=== PATIENT | male | born 1980 | race Caucasian/White ===

== ENCOUNTER 2019-10-10 21:23 | Emergency (ER) | payer OTHER ==
[2019-10-10 21:35] VITALS: BP 133/91; PULSE 103
--- NOTE | 2019-10-10 22:10 | EDM.PDOC ---
ED HPI GENERAL MEDICAL PROBLEM - General Chief Complaint: Lower Extremity Injury/Pain Stated Complaint: POSSIBLE BROKEN FOOT Time Seen by Provider: 10/10/19 21:47 Source of Information: Reports: Patient, RN Notes Reviewed History Limitations: Reports: No Limitations - History of Present Illness INITIAL COMMENTS - FREE TEXT/NARRATIVE: Patient is a 39-year-old male who presents to the ED for the evaluation of a left ankle injury. Patient states he was playing basketball with a couple other guys, and he was going for the basket, did a jump stop and ended up landing on another player's foot and rolled his left ankle. He states that he felt a pop and it hurt directly after this. There is quite a bit of swelling noted to the lateral aspect of his ankle. There is some redness, swelling and warmth as well. He also is complaining of pain to his medial aspect of his ankle. Triage nurse did apply ice to the area and elevated it, he states that this did seem to help quite a bit. He is not having any numbness or tingling, and he can move his foot and wiggle his toes without much issue. He states that he can bear weight however it is very painful to do so. 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 Treatments SHAREHOLDER: Reports: NSAIDS Left Ankle Pain Score (Numeric/FACES): 6 - Related Data Allergies Allergy/AdvReac Type Severity Reaction Status Date / Time cashew nut Allergy Anaphylactic Verified 10/10/19 21:36 Shock pistachio nut Allergy Anaphylactic Verified 10/10/19 21:36 Shock venom-honey bee Allergy Anaphylactic Verified 10/10/19 21:36 [bee venom (honey bee)] Shock Home Meds: Home Meds Amphetamine [Adzenys Xr-Odt 12.5 mg Tablet] 25 mg PO ASDIRECTED 10/10/19 [ History] Past Medical History Psychiatric History: Reports: ADD Social & Family History - Tobacco Use Smoking Status *Q: Never Smoker - Caffeine Use Caffeine Use: Reports: Coffee, Energy Drinks - Recreational Drug Use Recreational Drug Use: No Review of Systems - Review of Systems Review Of Systems: Comprehensive ROS is negative, except as noted in HPI. Musculoskeletal: Reports: Joint Pain (L ankle), Joint Swelling (L lateral ankle) Skin: Reports: Erythema (L lateral ankle). Denies: Bruising Neurological: Denies: Numbness, Tingling ED EXAM, GENERAL - Physical Exam Exam: See Below Exam Limited By: No Limitations General Appearance: Alert, WD/WN, No Apparent Distress Respiratory/Chest: No Respiratory Distress, Lungs Clear, Normal Breath Sounds, No Accessory Muscle Use, Chest Non-Tender Cardiovascular: Normal Peripheral Pulses, Regular Rate, Rhythm, No Murmur Extremities: Normal Capillary Refill, Joint Swelling (L lateral ankle), Limited Range of Motion (of L ankle d/t pain.) Neurological: Alert, Oriented, Normal Cognition, No Motor/Sensory Deficits Psychiatric: Normal Affect, Normal Mood Skin Exam: Warm, Dry, Intact, Normal Color, No Rash. No: Ecchymosis Course - Vital Signs Last Recorded V/S: Last Vital Signs Temp 98.4 F 10/10/19 21:34 Pulse 103 H 10/10/19 21:34 Resp 18 10/10/19 21:34 BP 133/91 H 10/10/19 21:34 Pulse Ox 98 10/10/19 21:34 - Orders/Labs/Meds Orders: Active Orders 24 hr Category Date Time Status Ankle Min 3V Lt [CR] Stat Exams 10/10/19 21:50 Ordered Foot Comp Min 3V Lt [CR] Stat Exams 10/10/19 21:50 Ordered - Re-Assessments/Exams Free Text/Narrative Re-Assessment/Exam: 10/10/19 22:12 Patient presents to the ED for the evaluation of his left ankle injury. I did order ankle x-rays and left foot x-rays for evaluation. 10/10/19 22:28 X-rays of the foot and ankle have been obtained, and demonstrate no acute abnormalities. This was reviewed by myself and Dr. Ortega. I did express this to the patient, and he is not wanting any sort of brace at this time, will have him Remy wrap it as needed and get an [id number] brace at [facility] if you should desire. He is okay with this plan. Departure - Departure Time of Disposition: 22:29 Disposition: Home, Self-Care 01 Condition: Fair Clinical Impression: Moderate left ankle sprain Qualifiers: Encounter type: initial encounter Qualified Code(s): S93.402A - Sprain of unspecified ligament of left ankle, initial encounter - Discharge Information *PRESCRIPTION DRUG MONITORING PROGRAM REVIEWED*: No *COPY OF PRESCRIPTION DRUG MONITORING REPORT IN PATIENT RAQUEL: No Instructions: Ankle Exercises-SportsMed, Ankle Sprain, [id number] Referrals: Marianna Lentz PA-C [Primary Care Provider] - Forms: ED Department Discharge Additional Instructions: You have been evaluated in the ED for your left ankle injury. Your x-ray demonstrated no fracture or bony abnormality appreciated of the left ankle or the left foot. Please use ice as tolerated to the affected area. Please try to elevate the area as much as possible. You may take Tylenol 500 mg or ibuprofen 600mg q6 hrs for pain relief. Please do so until you have a tolerable level of pain with activity. Do not exceed 4000mg Tylenol, Do not exceed 3200mg ibuprofen in a 24 hour time period. You may call Ortho for follow-up and further evaluation Dr. Smith is our orthopedic surgeon, his office number is [phone], if your injury is not improving as expected in couple weeks. Please expect that you will not be back to normal movement for at least 1 week. Please return to ED if your symptoms should change or worsen. Sepsis Event Note - Evaluation Sepsis Screening Result: No Definite Risk - Focused Exam Vital Signs: Vital Signs Temp Pulse Resp BP Pulse Ox 10/10/19 21:34 98.4 F 103 H 18 133/91 H 98 Date Exam was Performed: 10/10/19 Time Exam was Performed: 22:28 - My Orders Last 24 Hours: My Active Orders 10/10/19 21:50 Ankle Min 3V Lt [CR] Stat Foot Comp Min 3V Lt [CR] Stat - Assessment/Plan Last 24 Hours: My Active Orders 10/10/19 21:50 Ankle Min 3V Lt [CR] Stat Foot Comp Min 3V Lt [CR] Stat
--- NOTE | 2019-10-11 08:00 | CR ---
Left foot: Three views of the left foot were obtained. Comparison: No previous foot exam. Small plantar spur is noted. No acute fracture, dislocation or other bony abnormality is identified. Impression: 1. Small plantar spur. 2. No acute bony abnormality is seen on left foot study. Diagnostic code #2 This report was dictated in [place] Standard Time
--- NOTE | 2019-10-11 08:00 | CR ---
Left ankle: Four views of the left ankle were obtained. Comparison: No previous ankle exam. Soft tissue swelling is identified. Ankle mortise is symmetric. Small plantar spur is noted. No acute fracture or other bony abnormality is appreciated. Impression: 1. Soft tissue swelling. 2. No acute bony abnormality is identified. Diagnostic code #2 This report was dictated in [place] Standard Time
== END 2019-10-10 22:39 | disposition home or self-care (01) ==
LOC: JD.ED 21:23
DX: S93.402A Sprain of unspecified ligament of left ankle, initial encounter (principal); Z91.018 Allergy to other foods; Z91.030 Bee allergy status; X50.1XXA Overexertion from prolonged static or awkward postures, initial encounter; Y93.67 Activity, basketball
CPT/HCPCS: 73610-26-LT; 73610-LT; 73630-26-LT; 73630-LT; 99282; 99283-25

== ENCOUNTER 2020-11-01 22:43 | Emergency (ER) | payer OTHER ==
[2020-11-01] MEDS ORDERED: Alum Hydrox/Mag Hydrox/Simeth 30 ML, Lidocaine 2% 15 ML PO STA ×2 (23:04)
--- NOTE | 2020-11-01 23:28 | EDM.PDOC ---
ED HPI GENERAL MEDICAL PROBLEM - General Chief Complaint: Chest Pain Stated Complaint: EXTREME TIGHTNESS IN CHEST Time Seen by Provider: 11/01/20 22:54 Source of Information: Reports: Patient History Limitations: Reports: No Limitations - History of Present Illness INITIAL COMMENTS - FREE TEXT/NARRATIVE: Mr. Mathew is a very pleasant 40-year-old gentleman with a past medical history significant for ADHD, currently being treated with Adderall, who now presents the ED stating that he has had about 1 year of intermittent central and left chest discomfort, that he describes as a dull ache, pressure, or tightness, that has been increasing in both frequency and severity more recently. He estimates that he has had about 24 episodes over the past year. Pernell's episode began around 20:30, after he worked out and took a sauna. He states that he also occasionally feels dizzy, dyspneic, and nauseated, although no symptoms are more likely to occur if he drinks coffee on an empty stomach. With respect to his dyspnea, he states that it feels like he cannot take a deep breath. Those symptoms may improve if he either belches or passes gas. No prior medical evaluation of his symptoms. The patient acknowledges that he is under increased emotional stress related to the break-up of his marriage. He states that he feels anxious. He acknowledges that he drinks 3-4 beers per night, plus occasional drinking to excess. He reports prior use of anabolic steroids, most recently about 1 year ago. Here in the ED, the patient's initial BP is found to be slightly elevated at 122/100, otherwise, he is hemodynamically stable, afebrile, saturating 100% on room air. Other than the above symptoms, the patient denies having a recent fever, chills, sore throat, ear pain, nasal or sinus congestion, cough, dyspnea, palpitations, vomiting, constipation, diarrhea, abdominal pain, urinary symptoms, recent weight gain or weight loss, recent bloody bowel movements or black bowel movements, recent joint aches, headaches, or rashes. The patient's PCP is ASHLEY Gutierrez. He has not received an influenza vaccine this season, and declined an offer to get one here in the ED. Middle Chest Pain Score (Numeric/FACES): 5 - Related Data Allergies Allergy/AdvReac Type Severity Reaction Status Date / Time cashew nut Allergy Anaphylactic Verified 11/01/20 22:53 Shock pistachio nut Allergy Anaphylactic Verified 11/01/20 22:53 Shock venom-honey bee Allergy Anaphylactic Verified 11/01/20 22:53 [bee venom (honey bee)] Shock Home Meds: Home Meds Amphetamine [Adzenys Xr-Odt 12.5 mg Tablet] 25 mg PO ASDIRECTED 10/10/19 [History] Past Medical History Psychiatric History: Reports: ADHD Social & Family History - Tobacco Use Tobacco Use Status *Q: Current Some Day Tobacco User (when drinks alcohol) Second Hand Smoke Exposure: Yes - Caffeine Use Caffeine Use: Reports: Coffee, Energy Drinks Other Caffeine Use: occasional energy drinks, coffee in the morning - Alcohol Use Alcohol Use History: Yes Alcohol Use Frequency: Daily (3-4 beers per night + occasional to excesss) - Recreational Drug Use Recreational Drug Use: Yes Drug Use in Last 12 Months: No Recreational Drug Type: Reports: Marijuana/Hashish (smokes a few times a month) - Living Situation & Occupation Living situation: Reports: (), Alone 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 ED EXAM, GENERAL - Physical Exam Exam: See Below Exam Limited By: No Limitations General Appearance: Alert, WD/WN, Anxious Eye Exam: Bilateral Eye: EOMI, Normal Inspection Ears: Normal External Exam, Hearing Grossly Normal Nose: Normal Inspection Throat/Mouth: Normal Inspection, Normal Lips, Normal Voice, No Airway Compromise Head: Atraumatic, Normocephalic Neck: Normal Inspection, Full Range of Motion Respiratory/Chest: No Respiratory Distress, Lungs Clear, Normal Breath Sounds, No Accessory Muscle Use, Chest Non-Tender, Other (Left-sided chest pain is not reproducible by having the patient pressed his palms together with outstretched hands in front of his chest, or with crossing his left upper extremity across his chest) Cardiovascular: Normal Peripheral Pulses, Regular Rate, Rhythm, No Edema, No Gallop, No JVD, No Murmur, No Rub Peripheral Pulses: 3+: Radial (L), Radial (R) GI/Abdominal: Normal Bowel Sounds, Soft, Non-Tender, No Organomegaly, No Distention, No Abnormal Bruit, No Mass Back Exam: Normal Inspection, Full Range of Motion, NT Extremities: Normal Inspection, Normal Range of Motion, No Pedal Edema, Normal Capillary Refill Neurological: Alert, Oriented, Normal Cognition, No Motor/Sensory Deficits Psychiatric: Anxious Skin Exam: Warm, Dry, Intact, Normal Color, No Rash #1 Interpretation EKG Date: 11/01/20 Time: 22:52 Rhythm: NSR Rate (Beats/Min): 69 [place]: Normal P-Wave: Present QRS: Normal ST-T: Other (J-point elevation in V2V4, but no ischemic changes) QT: Normal Comparison: NA - No Prior EKG Course - Vital Signs Last Recorded V/S: Last Vital Signs Temp 36.6 C 11/01/20 22:49 Pulse 90 11/01/20 22:49 Resp 18 11/01/20 22:49 BP 122/100 H 11/01/20 22:49 Pulse Ox 100 11/01/20 22:49 Orthostatic Blood Pressure [] 131/83 Orthostatic Blood Pressure [] 133/73 - Orders/Labs/Meds Orders: Active Orders 24 hr Category Date Time Status EKG 12 Lead [EKG Documentation Completion] [RC] STAT Care 11/01/20 22:53 Active Orthostatic Vital Signs [RC] STAT Care 11/01/20 23:22 Active Chest 2V [CR] Stat Exams 11/01/20 23:21 Ordered Labs: Laboratory Tests 11/01/20 11/01/20 11/01/20 Range/Units 23:30 23:30 23:30 WBC 5.40 (4.23-9.07) K/mm3 RBC 5.21 (4.63-6.08) M/mm3 Hgb 16.2 (13.7-17.5) gm/dl Hct 48.2 (40.1-51.0) % MCV 92.5 H (79.0-92.2) fl MCH 31.1 (25.7-32.2) pg MCHC 33.6 (32.2-35.5) g/dl RDW Std Deviation 44.8 H (35.1-43.9) fL Plt Count 232 (163-337) K/mm3 MPV 9.9 (9.4-12.3) fl Neutrophils % (Manual) 48 (40-60) % Band Neutrophils % 0 (0-10) % Lymphocytes % (Manual) 35 (20-40) % Atypical Lymphs % 0 % Monocytes % (Manual) 7 (2-10) % Eosinophils % (Manual) 10 H (0.8-7.0) % Basophils % (Manual) 0 L (0.2-1.2) Platelet Estimate Adequate RBC Morph Comment Normal D-Dimer, Quantitative < 0.19 L (0.19-0.50) mg/L Puncture Site ABG pH (7.35-7.45) ABG pCO2 (35.0-45.0) mmHg ABG pO2 (80.0-100.0) mmHg ABG HCO3 (22.0-26.0) meq/L ABG O2 Saturation (96.0-97.0) % ABG Base Excess (-2-2.0) Elijah Test A-a Gradient mmHg O2 Delivery Device FiO2 (21.00-100.00) % Sodium 138 (136-145) mEq/L Potassium 3.5 (3.5-5.1) mEq/L Chloride 101 (98-107) mEq/L Carbon Dioxide 24 (21-32) mEq/L Anion Gap 16.5 H (5-15) BUN 14 (7-18) mg/dL Creatinine 1.3 (0.7-1.3) mg/dL Est Cr Clr Drug Dosing 84.56 mL/min Estimated GFR (MDRD) > 60 (>60) mL/min BUN/Creatinine Ratio 10.8 L (14-18) Glucose 93 (74-106) mg/dL Calcium 9.7 (8.5-10.1) mg/dL Magnesium 1.8 (1.8-2.4) mg/dl Total Bilirubin 0.8 (0.2-1.0) mg/dL AST 19 (15-37) U/L ALT 30 (16-63) U/L Alkaline Phosphatase 56 (46-116) U/L Troponin I < 0.017 (0.00-0.056) ng/mL C-Reactive Protein <0.2 (<1.0) mg/dL Total Protein 7.3 (6.4-8.2) g/dl Albumin 4.1 (3.4-5.0) g/dl Globulin 3.2 gm/dL Albumin/Globulin Ratio 1.3 (1-2) TSH 3rd Generation 2.694 (0.358-3.74) uIU/mL 11/01/20 Range/Units 23:35 WBC (4.23-9.07) K/mm3 RBC (4.63-6.08) M/mm3 Hgb (13.7-17.5) gm/dl Hct (40.1-51.0) % MCV (79.0-92.2) fl MCH (25.7-32.2) pg MCHC (32.2-35.5) g/dl RDW Std Deviation (35.1-43.9) fL Plt Count (163-337) K/mm3 MPV (9.4-12.3) fl Neutrophils % (Manual) (40-60) % Band Neutrophils % (0-10) % Lymphocytes % (Manual) (20-40) % Atypical Lymphs % % Monocytes % (Manual) (2-10) % Eosinophils % (Manual) (0.8-7.0) % Basophils % (Manual) (0.2-1.2) Platelet Estimate RBC Morph Comment D-Dimer, Quantitative (0.19-0.50) mg/L Puncture Site Lt radial ABG pH 7.41 (7.35-7.45) ABG pCO2 36.0 (35.0-45.0) mmHg ABG pO2 81.0 (80.0-100.0) mmHg ABG HCO3 22.3 (22.0-26.0) meq/L ABG O2 Saturation 96.5 (96.0-97.0) % ABG Base Excess -1.3 (-2-2.0) Elijah Test Positive A-a Gradient 24 mmHg O2 Delivery Device Room air FiO2 21.00 (21.00-100.00) % Sodium (136-145) mEq/L Potassium (3.5-5.1) mEq/L Chloride (98-107) mEq/L Carbon Dioxide (21-32) mEq/L Anion Gap (5-15) BUN (7-18) mg/dL Creatinine (0.7-1.3) mg/dL Est Cr Clr Drug Dosing mL/min Estimated GFR (MDRD) (>60) mL/min BUN/Creatinine Ratio (14-18) Glucose (74-106) mg/dL Calcium (8.5-10.1) mg/dL Magnesium (1.8-2.4) mg/dl Total Bilirubin (0.2-1.0) mg/dL AST (15-37) U/L ALT (16-63) U/L Alkaline Phosphatase (46-116) U/L Troponin I (0.00-0.056) ng/mL C-Reactive Protein (<1.0) mg/dL Total Protein (6.4-8.2) g/dl Albumin (3.4-5.0) g/dl Globulin gm/dL Albumin/Globulin Ratio (1-2) TSH 3rd Generation (0.358-3.74) uIU/mL Meds: Medications Discontinued Medications Generic Name Dose Route Start Last Admin Trade Name Freq PRN Reason Stop Dose Admin Al Hydroxide/Mg Hydroxide 30 0 ml 11/01/20 23:04 11/01/20 23:00 ml/ Lidocaine HCl 15 ml PO 11/01/20 23:05 45 ml ONETIME STA Administration - Re-Assessments/Exams Free Text/Narrative Re-Assessment/Exam: 11/01/20 23:23 As above, the patient has been experiencing about 1 year of intermittent central and left-sided chest achiness, pressure, or tightness, which has been getting progressively more frequent and severe. He has occasional associated dizziness, dyspnea and nausea, although those symptoms tend to occur more if he drinks coffee on an empty stomach. He acknowledges that he is under increased em otional stress due to the break-up of his marriage, and, indeed, he appears to be quite anxious, and his oxygen saturations 100% on room air. An ECG, obtained at triage, does not show any acute ischemic changes. A GI cocktail, taken during my evaluation, numbed his throat but did not modify his chest pressure sensation. His physical exam is unremarkable, including non-reproducibility of pain with palpation or flexion of the left pectoralis muscle. I have ordered a work-up that includes orthostatics, numerous blood tests, an ABG, and a chest x- ray. 11/02/20 00:09 Two-view chest radiograph appears to be grossly normal. The cardiac silhouette is within normal limits. No pulmonary vascular congestion. No pleural effusions. No focal infiltrate. No pneumothorax. Formal read per the R adiologist pending. The patient's CBC is unremarkable. His CMP is remarkable for an anion gap slightly elevated at 16.5, but with a bicarbonate normal at 24, and the remainder of his CMP being unremarkable. His magnesium level is within normal limits at 1.8. His TSH is within normal limits at 2.694. His CRP is undetectably low. His troponin is undetectably low. His D-dimer is undetectably low. His ABG represents a chronic primary respiratory alkalosis with appropriately compensated metabolic acidosis. 11/02/20 00:22 The patient is not orthostatic. 11/02/20 00:30 Test results discussed with the patient. As above, the patient's work-up tonight is entirely unremarkable, with the exception of a finding of respiratory alkalosis, which is likely responsible for his symptoms. I explained that respiratory alkalosis is usually due to anxiety, although can be due to a variety of other medical conditions, which we tested for, and found to be negative. I explained that the Adderall that the patient is taking may also contribute to, if not be responsible for his symptoms, and the patient then asked about caffeine, and reported that he drinks a number of energy drinks, including 1 just prior to coming to the ED. Certainly, a large quantity of caffeine can also contribute to his symptoms. Additionally, the patient's excessive alcohol intake can cause sleep disturbance and other issues, and is not helping. I advised the patient to not try to stop taking the Adderall or caffeine abruptly, rather, I recommended that he taper his caffeine and alcohol use over the next week or 2, and talk to his PCP about tapering his Adderall and switching to something else. If he continues to have these symptoms after discontinuation of Adderall, caffeine, and alcohol, then he will need to talk to his PCP about treatment options for anxiety. The patient expressed appreciation for this advice. Departure - Departure Time of Disposition: 00:33 Disposition: Home, Self-Care 01 Condition: Good Clinical Impression: Hyperventilation syndrome - Discharge Information *PRESCRIPTION DRUG MONITORING PROGRAM REVIEWED*: Not Applicable *COPY OF PRESCRIPTION DRUG MONITORING REPORT IN PATIENT RAQUEL: Not Applicable Referrals: Marianna Lentz PA-C [Primary Care Provider] - Forms: ED Department Discharge Additional Instructions: You were seen in the emergency room for 1 year of intermittent chest discomfort, with occasional shortness of breath, nausea, and dizziness. Work-up in the ER included positional blood pressure checks, several blood tests, an arterial blood gas, a chest x-ray, and an ECG. Your entire work-up was unremarkable, with the exception of your arterial blood gas, which confirmed that you are hyperventilating. As discussed, hyperventilation is usually due to anxiety, although can be due to a variety of other medical conditions, which we tested for, and found to be negative. You have not suffered a heart attack. You do not have a blood clot in your lungs. You are not hyperthyroid. There is no sign of an infection. You are not anemic. No electrolyte abnormalities were found. As discussed, it is very possible that Adderall, excessive caffeine, and alcohol may all contribute to your hyperventilation and symptoms. We do not recommend that you abruptly stop any of these, however. We recommend that you taper your caffeine and alcohol over the next couple of weeks, and that you talk to your PCP, ASHLEY Gutierrez, about tapering your Adderall and switching to something else to treat your ADHD. If, after you are off Adderall, caffeine, and alcohol, you still feel poorly, you may then need to be started on a medication to treat anxiety. If any other problems, please do not hesitate to return to the ER. Sepsis Event Note (ED) - Evaluation Sepsis Screening Result: No Definite Risk - Focused Exam Vital Signs: Vital Signs Temp Pulse Resp BP Pulse Ox 11/01/20 22:49 36.6 C 90 18 122/100 H 100 - My Orders Last 24 Hours: My Active Orders 11/01/20 22:53 EKG 12 Lead [EKG Documentation Completion] [RC] STAT 11/01/20 23:21 Chest 2V [CR] Stat 11/01/20 23:22 Orthostatic Vital Signs [RC] STAT - Assessment/Plan Last 24 Hours: My Active Orders 11/01/20 22:53 EKG 12 Lead [EKG Documentation Completion] [RC] STAT 11/01/20 23:21 Chest 2V [CR] Stat 11/01/20 23:22 Orthostatic Vital Signs [RC] STAT
[2020-11-02 00:48] VITALS: BP 138/84; PULSE 85
--- NOTE | 2020-11-02 10:30 | CR ---
Chest: 2 views of the chest were obtained. Comparison: No prior chest imaging is available. Heart size and mediastinum are normal. Lungs are clear with no acute parenchymal change. Bony structures are unremarkable. Impression: 1. Nothing acute is appreciated on 2 view chest x-ray. Diagnostic code #1
== END 2020-11-02 00:42 | disposition home or self-care (01) ==
LOC: JD.ED 22:43
DX: F45.8 Other somatoform disorders (principal); Z77.22 Contact with and (suspected) exposure to environmental tobacco smoke (acute) (chronic); Z79.899 Other long term (current) drug therapy; Z91.018 Allergy to other foods; Z91.030 Bee allergy status
CPT/HCPCS: 36415; 36600; 71046; 80053; 82803; 83735; 84443; 84484; 85007; 85027; 85379; 86140; 93005; 99285; A9270; 93010; 99284

== ENCOUNTER 2021-06-03 07:27 | Emergency (ER) | payer OTHER ==
[2021-06-03 07:58] VITALS: BP 134/74
[2021-06-03] MEDS ORDERED: Dexamethasone 4 MG/ML 5 ML MDV IV ONE (08:20)
--- NOTE | 2021-06-03 08:25 | EDM.PDOC ---
ED HPI GENERAL MEDICAL PROBLEM - General Chief Complaint: Respiratory Problem Stated Complaint: COVID +\ SOB\ FEVER Time Seen by Provider: 06/03/21 08:00 Source of Information: Reports: Patient History Limitations: Reports: No Limitations - History of Present Illness INITIAL COMMENTS - FREE TEXT/NARRATIVE: Patient is a 40-year-old male with a past medical history of sleep apnea presenting with a chief complaint of shortness of breath. Patient has reported approximately 7 to 10 days of symptoms. He was diagnosed with Covid and told that he had Covid pneumonia on Tuesday when he went to the Covid clinic. Patient states that symptoms are continuing to get worse. He reports associated fevers, fatigue, loss of smell, myalgias, left-sided chest pain. Reports taking his ox ygen levels at home and noting they were low in the 80s. Patient does report compliance with his CPAP machine but this did not seem to improve his symptoms as each morning he works significantly more short of breath. Patient did not receive Covid vaccination. Patient does inquire about treatments for Covid and about the possibility of taking ivermectin, hydroxychloroquine, azithromycin, monoclonal antibodies. Of note, patient had CT scan in the Covid clinic to evaluate for presence of pulmonary embolism which was negative. - Related Data Allergies Allergy/AdvReac Type Severity Reaction Status Date / Time cashew nut Allergy Anaphylactic Verified 06/03/21 07:58 Shock pistachio nut Allergy Anaphylactic Verified 06/03/21 07:58 Shock venom-honey bee Allergy Anaphylactic Verified 06/03/21 07:58 [bee venom (honey bee)] Shock Home Meds: Home Meds Benzonatate 100 mg PO TID 06/03/21 [History] dexAMETHasone [Decadron] 6 mg PO DAILY #10 tablet 06/03/21 [Rx] Past Medical History - Past Health History Medical/Surgical History: Denies Medical/Surgical History Psychiatric History: Reports: ADHD Other Psychiatric History: trouble concentrating unsure of dx Social & Family History - Tobacco Use Tobacco Use Status *Q: Never Tobacco User - Caffeine Use Caffeine Use: Reports: Coffee, Energy Drinks Other Caffeine Use: occasional energy drinks, coffee in the morning - Alcohol Use Days Per Week of Alcohol Use: 7 Number of Drinks Per Day: 5 Total Drinks Per Week: 35 - Recreational Drug Use Recreational Drug Use: No - Living Situation & Occupation Living situation: Reports: (), Alone 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) ED ROS GENERAL - Review of Systems Review Of Systems: See Below ED EXAM, GENERAL - Physical Exam Exam: See Below Course - Vital Signs Last Recorded V/S: Last Vital Signs Temp 37.6 C 06/03/21 07:54 Pulse 108 H 06/03/21 10:20 Resp 18 06/03/21 10:20 BP 134/74 06/03/21 07:54 Pulse Ox 87 L 06/03/21 10:20 - Orders/Labs/Meds Orders: Active Orders 24 hr Category Date Time Status Oxygen Therapy [RC] ASDIRECTED Care 06/03/21 08:20 Active Chest 1V Frontal [CR] Stat Exams 06/03/21 08:20 Taken Labs: Laboratory Tests 06/03/21 06/03/21 Range/Units 08:36 08:36 WBC 2.51 L (4.23-9.07) K/mm3 RBC 5.03 (4.63-6.08) M/mm3 Hgb 15.8 D (13.7-17.5) gm/dl Hct 46.9 (40.1-51.0) % MCV 93.2 H (79.0-92.2) fl MCH 31.4 (25.7-32.2) pg MCHC 33.7 (32.2-35.5) g/dl RDW Std Deviation 43.9 (35.1-43.9) fL Plt Count 158 L (163-337) K/mm3 MPV 10.5 (9.4-12.3) fl Neut % (Auto) 71.7 H (34.0-67.9) % Lymph % (Auto) 19.1 L (21.8-53.1) % Moca % (Auto) 8.0 (5.3-12.2) % Eos % (Auto) 0.4 L (0.8-7.0) Baso % (Auto) 0.4 (0.1-1.2) % Neut # (Auto) 1.80 (1.78-5.38) K/mm3 Lymph # (Auto) 0.48 L (1.32-3.57) K/mm3 Moca # (Auto) 0.20 L (0.30-0.82) K/mm3 Eos # (Auto) 0.01 L (0.04-0.54) K/mm3 Baso # (Auto) 0.01 (0.01-0.08) K/mm3 Sodium 137 (136-145) mEq/L Potassium 3.7 (3.5-5.1) mEq/L Chloride 101 (98-107) mEq/L Carbon Dioxide 24 (21-32) mEq/L Anion Gap 15.7 H (5-15) BUN 14 (7-18) mg/dL Creatinine 1.2 (0.7-1.3) mg/dL Est Cr Clr Drug Dosing 91.61 mL/min Estimated GFR (MDRD) > 60 (>60) mL/min BUN/Creatinine Ratio 11.7 L (14-18) Glucose 98 (70-99) mg/dL Calcium 8.7 (8.5-10.1) mg/dL Total Bilirubin 0.3 (0.2-1.0) mg/dL AST 33 (15-37) U/L ALT 27 (16-63) U/L Alkaline Phosphatase 45 L (46-116) U/L Troponin I < 0.017 (0.00-0.056) ng/mL C-Reactive Protein 5.4 H* (<1.0) mg/dL Total Protein 6.6 (6.4-8.2) g/dl Albumin 2.8 L (3.4-5.0) g/dl Globulin 3.8 gm/dL Albumin/Globulin Ratio 0.7 L (1-2) Meds: Medications Discontinued Medications Generic Name Dose Route Start Last Admin Trade Name Freq PRN Reason Stop Dose Admin Dexamethasone 6 mg 06/03/21 08:20 06/03/21 08:33 Dexamethasone 4 Mg/Ml 5 Ml Mdv IV 06/03/21 08:21 6 mg ONETIME ONE Administration Departure - Departure Time of Disposition: 11:54 Disposition: Home, Self-Care 01 Clinical Impression: Pneumonia due to COVID-19 virus - Discharge Information *PRESCRIPTION DRUG MONITORING PROGRAM REVIEWED*: Not Applicable *COPY OF PRESCRIPTION DRUG MONITORING REPORT IN PATIENT RAQUEL: Not Applicable Prescriptions: dexAMETHasone [Decadron] 6 mg PO DAILY #10 tablet Instructions: COVID-19 Frequently Asked Questions Referrals: Marianna Lentz PA-C [Primary Care Provider] - Forms: ED Department Discharge Sepsis Event Note (ED) - Evaluation Sepsis Screening Result: No Definite Risk - Focused Exam Vital Signs: Vital Signs Temp Pulse Resp BP Pulse Ox 06/03/21 10:20 108 H 18 87 L 06/03/21 07:54 37.6 C 109 H 16 134/74 91 L - My Orders Last 24 Hours: My Active Orders 06/03/21 08:20 Oxygen Therapy [RC] ASDIRECTED Chest 1V Frontal [CR] Stat - Assessment/Plan Last 24 Hours: My Active Orders 06/03/21 08:20 Oxygen Therapy [RC] ASDIRECTED Chest 1V Frontal [CR] Stat Assessment:: Patient is a 40-year-old male presenting to the emergency room with a chief complaint of shortness of breath. Patient has known diagnosis of COVID-19 infe ction. Also known as patient has Covid pneumonia without evidence of pulmonary embolism. Patient's outpatient work-up was reviewed by myself. Patient had uncomplicated ER course. Initially, his oxygen saturation was 88% to 91% on room air. This improved to 96 to 97% on supplemental nasal cannula 2 L. Patient was not in respiratory distress and extremely well in appearance. Laboratory studies were repeated as well as chest x-ray. No evidence of significant changes. Unlikely that this is secondary to pulmonary embolism or superimposed bacterial infection. Likely progression of COVID-19 pneumonia. Patient was initiated with dexamethasone IV. At this point, patient is stable for discharge with home oxygen therapy which is established prior to patient discharge. He also be continued on dexamethasone orally with appropriate return precautions. Hospital is at capacity currently as well as numerous hospitals and surrounding area and state. Patient does have appropriate home support and ability to monitor oxygen levels at home. Instructed to follow-up with primary care in the next several days. Patient agrees with this plan and is stable for discharge.
[2021-06-03 10:49] VITALS: PULSE 108
--- NOTE | 2021-06-03 13:24 | CR ---
Chest: Portable view of the chest was obtained. Comparison: Prior chest CT of 06/01/21 and chest x-ray of 11/01/20. Patchy areas of increased density are seen on both sides of the chest which appear slightly more prominent than on prior chest CT. Heart size and mediastinum are normal. Bony structures are unremarkable. Impression: 1. Patchy increased density on both sides of the chest which appear slightly more prominent than on prior chest CT. Findings presumably represent multifocal pneumonia. Please rule out COVID disease. Diagnostic code #3
== END 2021-06-03 12:10 | disposition home or self-care (01) ==
LOC: JD.ED 07:27
DX: U07.1 COVID-19 (principal); J12.82 Pneumonia due to coronavirus disease 2019; Z91.018 Allergy to other foods; Z91.030 Bee allergy status
CPT/HCPCS: 36415; 71045; 80053; 84484; 85025; 86140; 93005; 96374; 99285; J1100

== ENCOUNTER 2021-06-11 11:01 | Emergency (ER) | payer OTHER ==
--- NOTE | 2021-06-11 11:10 | EDM.PDOC ---
ED HPI GENERAL MEDICAL PROBLEM - General Chief Complaint: Chest Pain Stated Complaint: CHEST PAIN Time Seen by Provider: 06/11/21 11:09 - History of Present Illness INITIAL COMMENTS - FREE TEXT/NARRATIVE: 40-year-old male presents the emergency room with chest pain. This chest pain really started about 6:00 this morning. Fairly sudden onset. He does state however he had some chest discomfort more of a pressure that he noticed last night around 6:00 but it was not bad until earlier this morning. Patient is getting over Covid and was anticipating returning to work on Tuesday. He had a thorough evaluation done here on the sixth of this month for the Covid and has had improving symptoms up until this time. Patient has no history of coronary artery disease past medical history is otherwise unremarkable except for allergies. Patient has been using Tylenol and Motrin with mixed results but it is not controlling his pain at this time. Patient did quite a bit more active yesterday and wonders if this could be aggravating this. Patient was out climbing stairs up and down doing some grocery shopping he was sexually active and he did take 20 mg of Cialis midday yesterday. Chest Pain Score (Numeric/FACES): 10 - Related Data Allergies Allergy/AdvReac Type Severity Reaction Status Date / Time cashew nut Allergy Anaphylactic Verified 06/03/21 07:58 Shock pistachio nut Allergy Anaphylactic Verified 06/03/21 07:58 Shock venom-honey bee Allergy Anaphylactic Verified 06/03/21 07:58 [bee venom (honey bee)] Shock Home Meds: Home Meds Benzonatate 100 mg PO TID 06/03/21 [History] dexAMETHasone [Decadron] 6 mg PO DAILY #10 tablet 06/03/21 [Rx] Past Medical History - Past Health History Medical/Surgical History: Denies Medical/Surgical History Psychiatric History: Reports: ADHD Other Psychiatric History: trouble concentrating unsure of dx Social & Family History - Caffeine Use Caffeine Use: Reports: Coffee, Energy Drinks Other Caffeine Use: occasional energy drinks, coffee in the morning - Living Situation & Occupation Living situation: Reports: (), Alone 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) ED ROS GENERAL - Review of Systems Review Of Systems: See Below Constitutional: Reports: No Symptoms HEENT: Reports: No Symptoms Respiratory: Reports: Shortness of Breath, Pleuritic Chest Pain Cardiovascular: Reports: Chest Pain, Dyspnea on Exertion Endocrine: Reports: No Symptoms GI/Abdominal: Reports: No Symptoms Musculoskeletal: Reports: No Symptoms, Other (He does have some chest wall pain aggravated discomfort with deep inspiration) Neurological: Reports: No Symptoms ED EXAM, GENERAL - Physical Exam Exam: See Below Exam Limited By: No Limitations General Appearance: Alert, No Apparent Distress, Other (Mildly tachycardic blood pressure stable) Head: Atraumatic, Normocephalic Neck: Normal Inspection, Supple, Non-Tender, Full Range of Motion Respiratory/Chest: No Respiratory Distress, Lungs Clear, Normal Breath Sounds Cardiovascular: Regular Rate, Rhythm, No Edema, No Murmur GI/Abdominal: Normal Bowel Sounds, Soft, Non-Tender Course - Vital Signs Last Recorded V/S: Last Vital Signs Temp 36.7 C 06/11/21 11:02 Pulse 104 H 06/11/21 11:02 Resp 20 06/11/21 11:02 BP 167/98 H 06/11/21 11:02 Pulse Ox 97 06/11/21 11:02 - Orders/Labs/Meds Orders: Active Orders 24 hr Category Date Time Status Heparin Sodium/D5W [Heparin 25,000 Units in D5W 500 ML] Med 06/11/21 15:00 Ordered 25,000 units in 500 ml IV TITRATE Sodium Chloride 0.9% [Normal Saline] 100 ml Med 06/11/21 11:45 Active IV ASDIRECTED Sodium Chloride 0.9% [Saline Flush] Med 06/11/21 11:35 Active 10 ml FLUSH ONETIME PRN Medication Orders Sodium Chloride (Normal Saline) 100 mls @ 60 mls/hr IV ASDIRECTED HEMANTH Last Admin: 06/11/21 11:55 Dose: 60 mls/hr Documented by: JEWEL Heparin Sodium/Dextrose (Heparin 25,000 Units In D5w 500 Ml) 25,000 units in 500 mls @ 25.408 mls/hr IV TITRATE HEMANTH; Protocol Sodium Chloride (Sodium Chloride 0.9% 10 Ml Syringe) 10 ml FLUSH ONETIME PRN PRN Reason: Keep Vein Open Last Admin: 06/11/21 11:55 Dose: 10 ml Documented by: Admin: 06/11/21 11:30 Dose: 10 ml Documented by: RICCO Labs: Laboratory Tests 06/11/21 06/11/21 06/11/21 Range/Units 11:30 11:30 11:30 WBC 7.96 (4.23-9.07) K/mm3 RBC 5.22 (4.63-6.08) M/mm3 Hgb 16.3 (13.7-17.5) gm/dl Hct 48.6 (40.1-51.0) % MCV 93.1 H (79.0-92.2) fl MCH 31.2 (25.7-32.2) pg MCHC 33.5 (32.2-35.5) g/dl RDW Std Deviation 44.0 H (35.1-43.9) fL Plt Count 530 H D (163-337) K/mm3 MPV 9.8 (9.4-12.3) fl Neutrophils % (Manual) 49 (40-60) % Band Neutrophils % 0 (0-10) % Lymphocytes % (Manual) 30 (20-40) % Atypical Lymphs % 0 % Monocytes % (Manual) 14 H (2-10) % Eosinophils % (Manual) 7 (0.8-7.0) % Basophils % (Manual) 0 L (0.2-1.2) Platelet Estimate Adequate Plt Morphology Comment Normal RBC Morph Comment Normal PT 9.8 (9.7-12.0) SECONDS INR < 0.93 APTT 23.8 (21.7-31.4) SECONDS Sodium 143 (136-145) mEq/L Potassium 3.6 (3.5-5.1) mEq/L Chloride 107 (98-107) mEq/L Carbon Dioxide 27 (21-32) mEq/L Anion Gap 12.6 (5-15) BUN 16 (7-18) mg/dL Creatinine 1.1 (0.7-1.3) mg/dL Est Cr Clr Drug Dosing 105.86 mL/min Estimated GFR (MDRD) > 60 (>60) mL/min BUN/Creatinine Ratio 14.5 (14-18) Glucose 101 H (70-99) mg/dL Calcium 8.7 (8.5-10.1) mg/dL Total Bilirubin 0.3 (0.2-1.0) mg/dL AST 22 (15-37) U/L ALT 54 (16-63) U/L Alkaline Phosphatase 55 (46-116) U/L Troponin I 0.110 H* (0.00-0.056) ng/mL Total Protein 6.4 (6.4-8.2) g/dl Albumin 2.6 L (3.4-5.0) g/dl Globulin 3.8 gm/dL Albumin/Globulin Ratio 0.7 L (1-2) /14/21 Range/Units 13:25 WBC (4.23-9.07) K/mm3 RBC (4.63-6.08) M/mm3 Hgb (13.7-17.5) gm/dl Hct (40.1-51.0) % MCV (79.0-92.2) fl MCH (25.7-32.2) pg MCHC (32.2-35.5) g/dl RDW Std Deviation (35.1-43.9) fL Plt Count (163-337) K/mm3 MPV (9.4-12.3) fl Neutrophils % (Manual) (40-60) % Band Neutrophils % (0-10) % Lymphocytes % (Manual) (20-40) % Atypical Lymphs % % Monocytes % (Manual) (2-10) % Eosinophils % (Manual) (0.8-7.0) % Basophils % (Manual) (0.2-1.2) Platelet Estimate Plt Morphology Comment RBC Morph Comment PT (9.7-12.0) SECONDS INR APTT (21.7-31.4) SECONDS Sodium (136-145) mEq/L Potassium (3.5-5.1) mEq/L Chloride (98-107) mEq/L Carbon Dioxide (21-32) mEq/L Anion Gap (5-15) BUN (7-18) mg/dL Creatinine (0.7-1.3) mg/dL Est Cr Clr Drug Dosing mL/min Estimated GFR (MDRD) (>60) mL/min BUN/Creatinine Ratio (14-18) Glucose (70-99) mg/dL Calcium (8.5-10.1) mg/dL Total Bilirubin (0.2-1.0) mg/dL AST (15-37) U/L ALT (16-63) U/L Alkaline Phosphatase (46-116) U/L Troponin I 0.359 H* (0.00-0.056) ng/mL Total Protein (6.4-8.2) g/dl Albumin (3.4-5.0) g/dl Globulin gm/dL Albumin/Globulin Ratio (1-2) Meds: Medications Generic Name Dose Route Start Last Admin Trade Name Osielq PRN Reason Stop Dose Admin Sodium Chloride 100 mls @ 60 mls/hr 06/11/21 11:45 06/11/21 11:55 Normal Saline IV 60 mls/hr ASDIRECTED HEMANTH Administration Heparin Sodium/Dextrose 25,000 units in 500 mls @ 25.408 mls/hr 06/11/21 15:00 Heparin 25,000 Units In D5w 500 Ml IV TITRATE HEMANTH Protocol 12 UNITS/KG/HR Sodium Chloride 10 ml 06/11/21 11:35 06/11/21 11:55 Sodium Chloride 0.9% 10 Ml Syringe FLUSH 10 ml ONETIME PRN Administration Keep Vein Open Discontinued Medications Generic Name Dose Route Start Last Admin Trade Name Osielq PRN Reason Stop Dose Admin Aspirin 324 mg 06/11/21 12:43 06/11/21 13:27 Aspirin 81 Mg Tab.Chew PO 06/11/21 12:44 324 mg ONETIME ONE Administration Fentanyl 50 mcg 06/11/21 12:45 06/11/21 13:25 Fentanyl 100 Mcg/2 Ml Sdv IVPUSH 06/11/21 12:46 50 mcg ONETIME ONE Administration Fentanyl 50 mcg 06/11/21 14:28 Fentanyl 100 Mcg/2 Ml Sdv IVPUSH 06/11/21 14:29 ONETIME ONE Heparin Sodium (Porcine) 4,000 units 06/11/21 14:51 Heparin Sodium 5,000 Units/Ml Vial IVPUSH 06/11/21 14:52 .BOLUS ONE Iopamidol 100 ml 06/11/21 11:35 06/11/21 11:55 Iopamidol 755 Mg/Ml 100 Ml Bottle IVPUSH 06/11/21 11:36 100 ml ONETIME ONE Administration Tenecteplase Confirm 06/11/21 14:24 Tenecteplase 50 Mg Kit Administered 06/11/21 14:25 Dose 50 mg .ROUTE .STK-MED ONE - Re-Assessments/Exams Free Text/Narrative Re-Assessment/Exam: 06/11/21 11:24 The patient's tachycardia relatively sudden onset symptoms recent Covid we will proceed to CTA as well as check routine labs EKG is nondiagnostic at this point except for sinus tachycardia rate [address]-T wave changes he has some vague ST depression inferiorly 06/11/21 12:51 Patient's troponin is weakly elevated at 0.110 we will check a follow-up troponin. We will not start him on nitrates however given a little bit of fentanyl see if I can get him a little more comfortable. 06/11/21 15:02 The second troponin did come back elevated at 0.359. EKGs were forwarded to Dr. Kaiser, on-call paper tube cutter at [facility] he was in the middle of her procedure initially and could not review the EKGs until a few minutes ago. He did consider the situation and thought perhaps it was best to go ahead and give thrombolytics.. I did not start thrombolytics initially as the patient was somewhat resistant 10 with a brim pouncer machine operator thought as the patient is concerned about brain aneurysms even though he has no history no family history of brain aneurysms. The patient does do power lifting and uses testosterone about 1 cc a week. He denies any other anabolic steroids at this time. I did recommend the patient get the thrombolytics and he wanted to wait for the brim pouncer machine operator but after reviewing the situation with brim pouncer machine operator brim pouncer machine operator did recommend thrombolytics I explained to the patient he consents to receiving. Dr. Kaiser agrees with the heparin and would like us to give him 600 mg of Plavix as well. The case was discussed with Dr. Aviles ER physician at [facility] who is accepts the patient in transfer. Departure - Departure Time of Disposition: 15:12 Disposition: DC/Tfer to Acute Hospital 02 Clinical Impression: ST elevation myocardial infarction (STEMI) of inferior wall - Discharge Information Referrals: Marianna Lentz PA-C [Primary Care Provider] - Forms: ED Department Discharge Sepsis Event Note (ED) - Focused Exam Vital Signs: Vital Signs Temp Pulse Resp BP Pulse Ox 06/11/21 11:02 36.7 C 104 H 20 167/98 H 97 - My Orders Last 24 Hours: My Active Orders 06/11/21 11:35 Sodium Chloride 0.9% [Saline Flush] 10 ml FLUSH ONETIME PRN 06/11/21 11:45 Sodium Chloride 0.9% [Normal Saline] 100 ml IV ASDIRECTED 06/11/21 15:00 Heparin Sodium/D5W [Heparin 25,000 Units in D5W 500 ML] 25,000 units in 500 ml IV TITRATE - Assessment/Plan Last 24 Hours: My Active Orders 06/11/21 11:35 Sodium Chloride 0.9% [Saline Flush] 10 ml FLUSH ONETIME PRN 06/11/21 11:45 Sodium Chloride 0.9% [Normal Saline] 100 ml IV ASDIRECTED 06/11/21 15:00 Heparin Sodium/D5W [Heparin 25,000 Units in D5W 500 ML] 25,000 units in 500 ml IV TITRATE
[2021-06-11] MEDS: Sodium Chloride 0.9% 10 ML Syringe FLUSH PRN ×2 (11:30→11:55)
[2021-06-11] MEDS ORDERED: Iopamidol 755 Mg/ML 100 ML Bottle IVPUSH ONE (11:35)
[2021-06-11] MEDS ORDERED: Sodium Chloride 0.9% 100 ML IV SCH (11:45)
--- NOTE | 2021-06-11 12:18 | CT ---
CT chest Technique: Multiple axial sections through the chest were obtained. Intravenous contrast was utilized. Study has been performed as a pulmonary angiogram protocol. Comparison: Prior CT chest study of 06/01/21. Findings: Pulmonary arteries are well opacified. No filling defects are seen to indicate pulmonary embolism. Thoracic aorta shows no aneurysm. Small mediastinal lymph nodes are seen which are felt to be within normal limits. No axillary adenopathy is seen. No pericardial thickening is seen. Visualized upper abdominal structures show nothing acute. Lung window settings were reviewed. Patchy areas of increased parenchymal density are seen within both sides of the chest. These parenchymal densities have increased in amount from previous chest CT. No pleural effusions are seen. Bone window settings were reviewed. No acute osseous abnormality is appreciated. Impression: 1. No findings of pulmonary embolism. 2. Increasing parenchymal densities within both sides of the chest compatible with worsening COVID pneumonia. Diagnostic code #3
[2021-06-11] MEDS ORDERED: Aspirin 81 MG Tab.Chew PO ONE (12:43)
[2021-06-11] MEDS ORDERED: fentaNYL 100 MCG/2 ML SDV IVPUSH ONE ×3 (12:45→16:05)
[2021-06-11] MEDS ORDERED: Tenecteplase 50 MG Kit ONE (14:24)
[2021-06-11] MEDS ORDERED: Heparin Sodium 5,000 Units/ML Vial IVPUSH ONE (14:51)
[2021-06-11] MEDS ORDERED: Heparin Sodium/D5W 25,000 UNITS/500 ML BAG IV SCH (15:00)
[2021-06-11] MEDS ORDERED: Tenecteplase 50 MG Kit IV ONE (15:06)
[2021-06-11] MEDS ORDERED: Clopidogrel 75 MG Tab PO ONE (15:12)
[2021-06-11 15:36] VITALS: BP 142/82; PULSE 84
== END 2021-06-11 16:19 ==
LOC: JD.ED 11:01
DX: I21.19 ST elevation (STEMI) myocardial infarction involving other coronary artery of inferior wall (principal); Z91.010 Allergy to peanuts; Z91.018 Allergy to other foods; Z91.030 Bee allergy status
CPT/HCPCS: 36415; 37195; 71275; 71275-26; 80053; 84484; 85007; 85027; 85610; 85730; 93005; 96365; 96375; 96376; 99285-25; A9270-GY; J1644; J3010; J3101; Q9967

== ENCOUNTER 2021-12-04 19:47 | Emergency (ER) | payer OTHER ==
[2021-12-04 19:54] VITALS: PULSE 131
[2021-12-04] MEDS ORDERED: methylPREDNISolone Sodium Succinate 125 MG/2 ML SDV IVPUSH ONE (19:59)
[2021-12-04] MEDS ORDERED: diphenhydrAMINE 50 MG/ML SDV IVPUSH ONE (19:59)
[2021-12-04] MEDS ORDERED: EPINEPHrine 1 MG/ML SDV IM ONE (19:59)
[2021-12-04] MEDS ORDERED: Famotidine 20 MG/2 ML SDV IVPUSH ONE (19:59)
== END 2021-12-04 21:36 | disposition home or self-care (01) ==
LOC: JD.ED 19:47
DX: T78.2XXA Anaphylactic shock, unspecified, initial encounter (principal); I25.2 Old myocardial infarction; Z86.16 Personal history of COVID-19; Z91.030 Bee allergy status; Z91.018 Allergy to other foods
CPT/HCPCS: 96372; 96374; 96375; 99283; J0171; J1200; J2930; J3490; 99284